=== PATIENT | female | born 1995 | race Caucasian/White ===

== ENCOUNTER 2019-06-30 07:49 | Emergency (ER) | payer OTHER ==
[~2019-06-30] VITALS: Ht 172.7 cm; Wt 52.6 kg
[2019-06-30] MEDS ORDERED: NKM (07:56)
--- NOTE | 2019-06-30 07:56 | Emergency Room Report ---
History of Present Illness General Chief Complaint: Chest Pain Source: Patient Present Illness HPI The patient woke up this morning with severe chest pain. It is burning and sharp and substernal. She is never had pain like this before. She felt nauseated but has not vomited. She denies any fevers or chills or productive cough. There is no sore throat. The pain is making her feel quite anxious at this time. She rates the pain 10/10 and constant. No medications were taken prior to coming into the hospital. The pain is making her feel weak generally. The patient does smoke and drinks several caffeinated drinks. She denies nonsteroidal anti-inflammatories. There is no coffee-ground emesis, hematemesis , melena or hematochezia. Her stools have been normal. She denies dysuria. There is no abdominal pain. 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 She denies alcohol ingestion also. She does not want narcotic analgesics. She does not believe she is . Allergies: Coded Allergies: No Known Allergies (Unverified , 06/30/19) Patient History Past Medical History: see triage record Social History: Reports: smoking; Denies: drug use - prior opiates Social History Narrative Rehab counselor Reviewed Nursing Documentation: PMH: Agreed; PSxH: Agreed Review of Systems All Other Systems: negative except mentioned in HPI Physical Exam Vital Signs Date Time Temp Pulse Resp B/P (MAP) Pulse Ox O2 Delivery O2 Flow Rate FiO2 06/30/19 07:52 97.7 84 20 128/88 (101) 100 Room Air Sp02 EP Interpretation: reviewed, normal General Appearance: well appearing, alert, GCS 15, non-toxic, moderate distress Head: normocephalic, atraumatic Eyes: bilateral eye normal inspection, bilateral eye PERRL, bilateral eye EOMI ENT: moist mucus membranes Neck: supple Respiratory: chest non-tender, lungs clear, normal breath sounds Cardiovascular #1: regular rate, rhythm Cardiovascular #2: 2+ radial (R) Gastrointestinal: normal inspection, normal bowel sounds, non tender, no mass, non-distended, scaphoid Genitourinary: no CVA tenderness Musculoskeletal: back normal, gait/station normal, normal range of motion Neurologic: alert, oriented x3, grossly normal Psychiatric: anxious Skin: warm/dry, other - tattoos Medical Decision Making Diagnostic Impression: Primary Impression: Chest pain Qualified Codes: R07.9 - Chest pain, unspecified Additional Impressions: Gastritis Qualified Codes: K29.00 - Acute gastritis without bleeding Esophagitis ER Course Patient presents with moderate distress with chest pain that she had when she woke up. Differential includes acute myocardial infarction, pericarditis, pulmonary embolus, esophageal spasm, esophagitis, chest wall pain amongst others. There is a component of anxiety. Based on physical exam and vital signs pulmonary embolus is excluded. The patient has no risk factors for acute myocardial infarction. Patient will be evaluated with EKG, chest x-ray and labs. Patient will be treated with Reglan, Benadryl, Mylanta and viscous lidocaine. The patient is placed on a monitoring engineer. EKG sinus bradycardia rate 49 with sinus arrhythmia. RSR prime in V1 with right ventricular conduction delay. Nonspecific ST-T wave changes. No suggestion of Brugada. Chest x-ray no infiltrates or abnormalities. Pain initially decreased to 4 then returned again. Will try repeat Mylanta. 9: 00 Patient sleeping after Mylanta. Pain is controlled. Urine has not been produced. She believes she might have a urinary tract infection. Urinalysis obtained and evaluated. No evidence of urinary tract infection. Discussed etiology of chest pain with patient and the need for outpatient follow -up. Advised to return if the pain returned. Discussed treatment plan with patient. Patient stable for outpatient observation and treatment. Laboratory Tests Test 06/30/19 04:47 06/30/19 08:00 06/30/19 11:10 Prothrombin Time 10.8 SEC (9.30-11.50) Prothrombin Time INR 1.0 (0.9-1.1) PTT 24 SEC (23-33) Sodium Level 141 MMOL/L (136-145) Potassium Level 3.4 MMOL/L (3.5-5.1) L Chloride Level 106 MMOL/L (98-107) Carbon Dioxide Level 24 MMOL/L (21-32) Anion Gap 11 mmol/L (5-15) Blood Urea Nitrogen 10 mg/dL (7-18) Creatinine 1.0 MG/DL (0.55-1.30) Estimate Glomerular Filtration Rate > 60 mL/min (>60) Glucose Level 104 MG/DL (74-106) Calcium Level 9.7 MG/DL (8.5-10.1) Total Bilirubin 0.4 MG/DL (0.2-1.0) Aspartate Amino Transferase (AST) 27 U/L (15-37) Alanine Aminotransferase (ALT) 22 U/L (12-78) Alkaline Phosphatase 62 U/L (46-116) Total Creatine Kinase 52 U/L (26-308) Troponin I 0.000 ng/mL (0.000-0.056) Pro-B-Type Natriuretic Peptide 15 pg/mL (0-125) Total Protein 8.2 G/DL (6.4-8.2) Albumin 4.2 G/DL (3.4-5.0) Globulin 4.0 g/dL Albumin/Globulin Ratio 1.0 (1.0-2.7) White Blood Count 8.9 K/UL (4.8-10.8) Red Blood Count 4.54 M/UL (4.20-5.40) Hemoglobin 14.0 G/DL (12.0-16.0) Hematocrit 40.2 % (37.0-47.0) Mean Corpuscular Volume 88 FL (80-99) Mean Corpuscular Hemoglobin 30.8 PG (27.0-31.0) Mean Corpuscular Hemoglobin Concent 34.8 G/DL (32.0-36.0) Red Cell Distribution Width 10.9 % (11.6-14.8) L Platelet Count 260 K/UL (150-450) Mean Platelet Volume 6.8 FL (6.5-10.1) Neutrophils (%) (Auto) 59.6 % (45.0-75.0) Lymphocytes (%) (Auto) 35.8 % (20.0-45.0) Monocytes (%) (Auto) 2.9 % (1.0-10.0) Eosinophils (%) (Auto) 1.0 % (0.0-3.0) Basophils (%) (Auto) 0.7 % (0.0-2.0) Urine Color Pale yellow Urine Appearance Clear Urine pH 6 (4.5-8.0) Urine Specific [place] 1.015 (1.005-1.035) Urine Protein Negative (NEGATIVE) Urine Glucose (UA) Negative (NEGATIVE) Urine Ketones Negative (NEGATIVE) Urine Blood Negative (NEGATIVE) Urine Nitrite Negative (NEGATIVE) Urine Bilirubin Negative (NEGATIVE) Urine Urobilinogen Normal MG/DL (0.0-1.0) Urine Leukocyte Esterase 2+ (NEGATIVE) H Urine RBC 0 /HPF (0 - 2) Urine WBC 2-4 /HPF (0 - 2) Urine Squamous Epithelial Cells Few /LPF (NONE/OCC) Urine Bacteria Occasional /HPF (NONE) Urine HCG, Qualitative Negative (NEGATIVE) EKG Diagnostic Results Rate: bradycardiac Rhythm: NSR ST Segments: no acute changes Rhythm Strip Diag. Results EP Interpretation: yes Rhythm: NSR, no PVC's, no ectopy, other - Heart rate 77 Chest X-Ray Diagnostic Results Chest X-Ray Diagnostic Results : Chest X-Ray Ordered: Yes # of Views/Limited/Complete: 1 View Indication: Chest Pain EP Interpretation: Yes Interpretation: no consolidation, no effusion, no pneumothorax Impression: No acute disease Electronically Signed by: Electronically signed by Olegario Bocanegra MD Last Vital Signs Date Time Temp Pulse Resp B/P (MAP) Pulse Ox O2 Delivery O2 Flow Rate FiO2 06/30/19 12:25 81 21 108/60 99 Room Air 06/30/19 12:18 97.7 Status: improved Disposition: HOME, SELF-CARE Condition: Improved Scripts Acetaminophen (Tylenol) 325 Mg Tablet 650 MG ORAL Q6H PRN for Prn Pain/Headache/Temp > 101, #20 TAB 0 Refills Prov: Olegario Bocanegra MD 06/30/19 Mag Hydrox/Al Hydrox/Simeth (MAALOX MAXIMUM STRENGTH SUSP) 355 Ml Oral.susp 30 ML PO Q6HR PRN for chest or stomach pain, #240 ML Prov: Olegario Bocanegra MD 06/30/19 Famotidine (PEPCID AC) 20 Mg Tablet 20 MG PO DAILY, #20 TAB Prov: Olegario Bocanegra MD 06/30/19 Olegario Bocanegra MD Jun 30, 2019 07:56
[2019-06-30] MEDS ORDERED: DiphenhydrAMINE 50mg/ml Inj IVP ONE (08:00)
[2019-06-30] MEDS ORDERED: Lidocaine 2% Visc 15ml soln ORAL SCH (08:00)
[2019-06-30] MEDS ORDERED: DiphenhydrAMINE 50mg/ml Inj IVP SCH (08:00)
[2019-06-30] MEDS ORDERED: Lidocaine 2% Visc 15ml soln ORAL ONE (08:00)
[2019-06-30] MEDS ORDERED: Metoclopramide 10mg/2ml Inj IVP SCH (08:00)
[2019-06-30] MEDS ORDERED: Mylanta II UD 30ml ORAL SCH (08:00)
[2019-06-30] MEDS ORDERED: Metoclopramide 10mg/2ml Inj IVP ONE (08:00)
[2019-06-30] MEDS ORDERED: Mylanta II UD 30ml ORAL ONE ×2 (08:00→09:15)
[2019-06-30 08:07] VITALS: BP 128/88
[2019-06-30 08:14] LABS: BASOPHILS % (AUTO) 0.7 % (0.0-2.0); HEMATOCRIT 40.2 % (37.0-47.0); LYMPHOCYTES % (AUTO) 35.8 % (20.0-45.0); MEAN CORPUSCULAR VOLUME 88 FL (80-99); MONOCYTES % (AUTO) 2.9 % (1.0-10.0); NEUTROPHILS % (AUTO) 59.6 % (45.0-75.0); PLATELET COUNT 260 K/UL (150-450); RED BLOOD COUNT 4.54 M/UL (4.20-5.40); RED CELL DISTRIBUTION WIDTH 10.9 % (11.6-14.8); WHITE BLOOD COUNT 8.9 K/UL (4.8-10.8)
--- NOTE | 2019-06-30 08:32 | NUR ---
ED Nurse Note: Pt from home came in with boyfriend. pt states she started having chest pain sharp and heaviness when she woke up. Pt placed on monitor ekg done blood sent to lab pt medicated ivf up infusing. pt now states pain 0/10 pain now. Will continue to monitor.
[2019-06-30 08:33] LABS: ANION GAP 11 mmol/L (5-15); BLOOD UREA NITROGEN 10 mg/dL (7-18); CALCIUM 9.7 MG/DL (8.5-10.1); CARBON DIOXIDE 24 MMOL/L (21-32); CHLORIDE 106 MMOL/L (98-107); POTASSIUM 3.4 MMOL/L (3.5-5.1); SODIUM 141 MMOL/L (136-145)
[2019-06-30 08:40] LABS: ALANINE AMINOTRANSFERASE 22 U/L (12-78); ALBUMIN 4.2 G/DL (3.4-5.0); ALKALINE PHOSPHATASE 62 U/L (46-116); ASPARTATE AMINO TRANSFERASE 27 U/L (15-37); BILIRUBIN,TOTAL 0.4 MG/DL (0.2-1.0); CREATINE KINASE 52 U/L (26-308)
--- NOTE | 2019-06-30 10:13 | Diagnostic Imaging Report ---
EXAM: XR Chest, 1 View CLINICAL HISTORY: CP TECHNIQUE: Frontal view of the chest. COMPARISON: No relevant prior studies available. FINDINGS: Lungs: No consolidation. Pleural space: Unremarkable. No pneumothorax. Heart: Unremarkable. No cardiomegaly. Mediastinum: Unremarkable. Bones joints: No acute fracture. IMPRESSION: No acute cardiopulmonary disease.
[2019-06-30 10:57] VITALS: BP 111/68
--- NOTE | 2019-06-30 10:57 | NUR ---
ED Nurse Note: pt sleeping 0/10 pain on monitor vss boyfriend at bedside.
[2019-06-30 11:30] LABS: APPEARANCE,URINE CLEAR; BILIRUBIN, URINE NEGATIVE (NEGATIVE); COLOR,URINE PALE YELLOW; GLUCOSE, URINE (UA) NEGATIVE (NEGATIVE); KETONES,URINE NEGATIVE (NEGATIVE); LEUKOCYTE ESTERASE ,URINE 2+ (NEGATIVE); NITRITE,URINE NEGATIVE (NEGATIVE); PH,URINE 6 (4.5-8.0); PROTEIN,URINE NEGATIVE (NEGATIVE); UROBILINOGEN,URINE NORMAL MG/DL (0.0-1.0)
[2019-06-30] MEDS ORDERED: MAALOX MAXIMUM355 M1 PO (12:10)
[2019-06-30] MEDS ORDERED: TYLENOL325 MG ORAL (12:10)
[2019-06-30] MEDS ORDERED: PEPCID AC20 M2 PO (12:10)
[2019-06-30 12:18] VITALS: BP 108/60
[2019-06-30 12:25] VITALS: BP 108/60
--- NOTE | 2019-06-30 12:25 | NUR ---
ED Nurse Note: Pt cleared by health care Provider for discharge. DC instructions/prescription was given and explained to pt and verbalized understanding of teachings. All medical deviecs such as ID band removed. Pt is AAO x4, ambulatory and left with all personal belongings.
--- NOTE | 2019-07-01 17:24 | Cardiology Report ---
APPROVED REPORT EKG Measurement Heart [id number] Atrial fibrillation with slow ventricular response with a competing junctional pacemaker RSR' or QR pattern in V1 suggests right ventricular conduction delay Abnormal ECG
== END 2019-06-30 12:25 | disposition home or self-care (01) ==
LOC: EMR 08:00
DX: R07.9 Chest pain, unspecified (principal); K29.00 Acute gastritis without bleeding; K20.9 Esophagitis, unspecified; Z87.891 Personal history of nicotine dependence; R00.0 Tachycardia, unspecified; I49.9 Cardiac arrhythmia, unspecified; R00.1 Bradycardia, unspecified
CPT/HCPCS: 36415; 71045; 80053; 81003; 81025; 82550; 83880; 84484; 85025; 85610; 85730; 93005; 96361; 96374; 96375; 96376; J1200; J2765; S0028; Z7502; 99284